=== PATIENT | female | born 1975 | race Caucasian/White ===

== ENCOUNTER 2021-07-21 16:24 | Emergency (ER) | payer BC, SELFPAY ==
[2021-07-21 17:45] VITALS: BP 144/91; PULSE 90; RESP 18; TEMP 36.7; O2SAT 98; BMI 29.7
[2021-07-21 18:00] LABS: UTC Strep Screen (Rapid) Negative (Negative)
--- NOTE | 2021-07-21 18:15 | HMH.EDUTC ---
[facility] [place] Clinical Impression: URI (upper respiratory infection) Qualifiers: URI type: unspecified URI Qualified Code(s): J06.9 - Acute upper respiratory infection, unspecified Disposition: Home, Self-Care Condition on Discharge: Good Instructions: Sore Throat, Azithromycin, DI for COVID-19 (Suspected or Confirmed ), Preventing the Spread of Coronavirus Discharge Instructions Additional Instructions: *Monitor Temp, Over the counter Motrin or Tylenol as directed/as needed Tylenol every 4 hours and Motrin every 6 hours (as long as your family doctor has told you that you can take it) for fever or pain. and straight to ER if unable to lower temp less than 101.0 after medication given *Warm salt water gargles may help to soothe the throat *Throat Lozenges *Warm fluids like tea with honey may help to soothe the throat *Sleep elevated *Humidifier/Vaporizer Your throat swab was sent for culture. Those results are typically sent to your primary care. Be sure to follow up in 2-3 days with your family doctor/primary care physician if no improvement so they can review those result and treat if necessary. If you don?t have a primary care doctor, I recommend you get one but in the mean time, you will have to return to a walk in clinic Follow up IMMEDIATELY for new or worsening symptoms or no Noticeable improvement over the next 48-72 hours. 911 for difficulty breathing or swallowing You were tested for today for COVID19 your test result should be back in the next 48-72 hours, you may check your results on the [facility] My health portal If you are positive someone from the Hospital will be calling you Make sure to drink plenty of water and gatoraid and take vitamin C, D and zinc Prescriptions: methylPREDNISolone [Medrol 4mg tab] 4 mg PO DIRECTED #21 tab Transmission Status: Pending to [facility] Azithromycin [Z-Edvin 250mg Tab] 250 mg PO DIRECTED #6 tab Transmission Status: P[facility] to [facility] Referrals: Denins Paul [Primary Care Provider] - As needed Forms: Work/School Release Time of Disposition: 18:25 Medical Decision Making - Kvng Inquiry Pt receiving controlled substance: No Kvng was queried for this patient: No Vital Signs: 07/21/21 17:45 Temperature 98.0 F Temperature Source Oral Pulse Rate [Right Brachial] 90 Respiratory Rate 18 Blood Pressure [Right Arm] 144/91 H Blood Pressure Mean [Right Arm] 108 Blood Pressure Source [Right Arm] Automatic Cuff Blood Pressure Position [Right Arm] Sitting 02 Sat by Pulse Oximetry 98 Oxygen Delivery Method Room Air - Lab Data Lab results reviewed: Yes: I reviewed the patient's lab results. Lab Results 07/21/21 17:53: Strep Scn Rapid Clinic Negative Orders (Tests/Meds): ORDERS Category Date Time Status Covid-19 Nasal PCR ([facility]) Routine Lab 07/21/21 17:53 Ordered Strep Screen Confirmation Stat Micro 07/21/21 17:53 Received [facility] UTC HPI - General Stated complaint: exposed, chills,congestion,sore throat Time Seen by Provider: 07/21/21 18:15 Mode of Arrival: Ambulatory Source of Information: Patient Limitations: No Limitations Description of Symptoms (Recalled from Triage Doc. by RN): PATIENT C/O BODY ACHES, SNEEZING, CONGESTION, SORE THROAT AND COUGH X 3 DAYS. RECENTLY EXPOSED TO COVID HEENT Symptoms (Recalled from RN notes): Yes Resp Symptoms (Recalled from RN notes): Yes Skin Symptoms (Recalled from RN notes): No MS Symptoms (Recalled from RN notes): No Functional Status (Recalled from RN notes): WNL - History of Present Illness Provider Complaint: Patient was recently exposed to COVID States that she was sick before she was around her daughter that was positive States that she has been having sinus pain and pressure along with sore scratchy throat States that today felt like she was swallowing razor blades so she came in - Related Data Previous Rx's Medication Instructions Recorded Azithromycin [Z-Edvin
[2021-07-21 18:29] VITALS: BP 144/91; PULSE 90; RESP 18; TEMP 36.7; O2SAT 98
== END 2021-07-21 18:34 | disposition home or self-care (01) ==
PROVIDERS: Emergency Provider Nurse Practitioner; PCP Family Medicine
DX: J06.9 Acute upper respiratory infection, unspecified (principal); Z20.822 Contact with and (suspected) exposure to COVID-19
CPT/HCPCS: 87880; 99203; C9803; G0463; U0003; U0005

== ENCOUNTER 2021-09-08 10:36 | Emergency (ER) | payer BC, SELFPAY ==
[2021-09-08 11:49] VITALS: BP 121/83; PULSE 75; RESP 18; TEMP 36.8; O2SAT 100; BMI 29.0
[2021-09-08 11:50] LABS: UTC Strep Screen (Rapid) Positive (Negative)
--- NOTE | 2021-09-08 12:15 | HMH.EDUTC ---
[facility] – [place] Disposition Clinical Impression: Strep throat Disposition: Home, Self-Care Condition on Discharge: Good Instructions: DI for Strep Throat, Strep Throat, Amoxicillin Additional Instructions: *Monitor Temp, Over the counter Motrin or Tylenol as directed/as needed Tylenol every 4 hours and Motrin every 6 hours (as long as your family doctor has told you that you can take it) for fever or pain. and straight to ER if unable to lower temp less than 101.0 after medication given *Warm salt water gargles may help to soothe the throat *Throat Lozenges *Warm fluids like tea with honey may help to soothe the throat *Sleep elevated *Humidifier/Vaporizer *If you did not take Penicillin shot or was unable to, start taking antibiotic immediately and make sure that you take it for the FULL length of time although you should start to feel better in 24-48 hours *change toothbrush and toothpaste 24-48 hours after starting to take antibiotics so you do not reinfect yourself Monitor Temp. Tylenol and/or Ibuprofen as needed. ER if fever is no less than 101 despite alternating Tylenol and Ibuprofen * Encourage fluids, water, Gatorade, powerade, pedialyte if /toddler/or child *Cold fluids, popsicles and ice cream may feel good on his throat Follow up IMMEDIATELY for new or worsening symptoms or no Noticeable improvement over the next 48-72 hours. 911 for difficulty breathing or swallowing Prescriptions: Amoxicillin [Amoxicillin 500mg Cap] 500 mg PO BID 10 Days #20 cap Transmission Status: Pending to [id number] Referrals: Provider,Referral, [Primary Care Provider] - As needed Forms: Work/School Release Time of Disposition: 12:23 Medical Decision Making - Kvng Inquiry Pt receiving controlled substance: No Kvng was queried for this patient: No Vital Signs: 09/08/21 11:49 Temperature 98.2 F Temperature Source Oral Pulse Rate [Right Brachial] 75 Respiratory Rate 18 Blood Pressure [Right Arm] 121/83 Blood Pressure Mean [Right Arm] 95 Blood Pressure Source [Right Arm] Automatic Cuff Blood Pressure Position [Right Arm] Sitting 02 Sat by Pulse Oximetry 100 Oxygen Delivery Method Room Air - Lab Data Lab results reviewed: Yes: I reviewed the patient's lab results. Lab Results 09/08/21 11:45: Strep Scn Rapid Clinic Positive A [facility] [place] HPI - General Stated complaint: Sore throat Time Seen by Provider: 09/08/21 12:16 Mode of Arrival: Ambulatory Source of Information: Patient Limitations: No Limitations Description of Symptoms (Recalled from Triage Doc. by RN): sore throat HEENT Symptoms (Recalled from RN notes): Yes Resp Symptoms (Recalled from RN notes): No Skin Symptoms (Recalled from RN notes): No MS Symptoms (Recalled from RN notes): No Functional Status (Recalled from RN notes): wnl - History of Present Illness Provider Complaint: Patient states that she has been having sorethroat and irritation and hurts when she swallows State that it feels like it does when she has strep throat so she came in - Related Data Previous Rx's Medication Instructions Recorded Azithromycin [Z-Edvin 250mg Tab] 250 mg PO DIRECTED #6 tab 07/21/21 methylPREDNISolone [Medrol 4mg 4 mg PO DIRECTED #21 tab 07/21/21 tab] Amoxicillin [Amoxicillin 500mg 500 mg PO BID 10 Days #20 cap 09/08/21 Cap] Allergies Allergy/AdvReac Type Severity Reaction Status Date / Time No Known Allergies Allergy Verified 04/10/19 16:55 - Worker's Comp Is this a Worker's Comp case?: No [facility] History - Hepatitis A Screen Drug use history?: No High risk sexual behaviors?: No History of sexually transmitted infection?: No Currently employed?: No Childcare worker?: No Do you have indoor plumbing?: Yes Do you have electricity?: Yes Attestation statement:: This patient has been screened for Hepatitis A risk factors. I have reviewed the patient's past medical history: Yes - Social History Alcoho
[2021-09-08 12:25] VITALS: BP 121/93; PULSE 75; RESP 18; TEMP 36.8; O2SAT 100
== END 2021-09-08 12:29 | disposition home or self-care (01) ==
PROVIDERS: Emergency Provider Nurse Practitioner
DX: J02.0 Streptococcal pharyngitis (principal)
CPT/HCPCS: 87880; 99212; G0463